=== PATIENT | female | born 1965 | race Caucasian/White ===

== ENCOUNTER 2018-06-06 16:19 | Inpatient (IN) ==
--- NOTE | 2018-06-06 16:30 | PROVIDER DOCUMENTATION ---
HPI-Neurological Disorder - General Chief Complaint: Seizure Stated Complaint: seizure Time Seen by Provider: 06/06/18 16:19 Allergies/Adverse Reactions: Patient Allergies Allergy/AdvReac Type Severity Reaction Status Date / Time No Known Allergies Allergy Verified 06/06/18 17:02 Home Medications: Home Medication List Medication Instructions Recorded Confirmed Last Taken Type Amlodipine Besylate [Norvasc] 10 mg PO DAILY 06/22/17 06/06/18 06/21/17 21:00 History Atorvastatin Calcium 80 mg PO QHS 06/22/17 06/06/18 06/21/17 21:00 History Cyclobenzaprine [Flexeril] 10 mg PO BID PRN 06/22/17 06/06/18 Unknown History Gabapentin 300 mg PO BID 06/22/17 06/06/18 06/22/17 08:00 History Lisinopril 20 mg PO QAM 06/22/17 06/06/18 06/21/17 09:00 History Metformin [Glucophage] 500 mg PO QHS 06/22/17 06/06/18 06/21/17 22:00 History Metoprolol Tartrate 50 mg PO DAILY 06/22/17 06/06/18 06/22/17 08:00 History Clopidogrel [Plavix] 1 tab PO DAILY 06/06/18 06/06/18 Unknown History Escitalopram [Lexapro] 20 mg PO DAILY 06/06/18 06/06/18 Unknown History Topiramate 1 tab PO QHS 06/06/18 06/06/18 Unknown History Trazodone [Desyrel] 1 tab PO QHS 06/06/18 06/06/18 Unknown History - History of Present Illness-Neuro Nature of Presenting Problem: ems reports that pt reporting that pt had intermittent seizure. while ems got there pt was alert speaking while having upper extremities shaking. pt has history of seizure on topirmate and also on other antipsychotic medicine. while at bedside pt werent able to give history and incoherent. able to state names and undertanding but kept repeating words. she says that she was putting her glass on and while standing up, she felt dizzy, weak and numbness on the arms and legs, and held on her to stand and ambulate. while in the room pt having her lower extrremities moving. she is crying and stating things are not consistent. Review of Systems - Adult - REVIEW OF SYSTEMS - ADULT Constitutional: reports: no symptoms reported Eyes: reports: no symptoms reported Ears, Nose, Mouth & Throat: reports: no symptoms reported Cardiovascular: reports: no symptoms reported Respiratory: reports: no symptoms reported Gastrointestinal: reports: no symptoms reported Genitourinary: reports: no symptoms reported Musculoskeletal: reports: no symptoms reported Integumentary: reports: no symptoms reported Neurological: reports: no symptoms reported Psychiatric: reports: no symptoms reported Endocrine: reports: no symptoms reported Hematologic/Lymphatic: reports: no symptoms reported Allergic/Immunologic: reports: no symptoms reported All Other Systems: Reviewed and Negative Past History - Adult - PAST MEDICAL HISTORY-ADULT Review of Records: reports: Old Records Reviewed, Nursing Assessment Review, Medications Reviewed, Social history reviewed & non-contributory. Major Childhood Illnesses: reports: denies history Cardiovascular: reports: CAD (with stent in place), HTN, [place] (no prior record) Respiratory: reports: COPD Gastrointestinal: reports: denies history Obstetrical/Gynecological: reports: denies history Genitourinary: reports: denies history Musculoskeletal: reports: denies history Neurological: reports: denies history Endocrine/Immune: reports: denies history Other Conditions: reports: denies history - PRIOR SURGERIES/PROCEDURES Surgical/Procedure History: reports: cardiac stent (05/23/17) - IMMUNIZATION STATUS Childhood Immunizations: See Nurse Assessment Flu Vaccine: See Nurse Assessment - FAMILY HISTORY Family History: reviewed, not pertinent - SOCIAL HISTORY Smoking: denies Substance Use: none/never Living Situation: family Physical Exam- Neurological - Physical Exam-Neuro Initial Vital Signs Reviewed: Yes (tachycardic) General Appearance: alert (but incoherent. 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, other (no facial droop) Integumentary: normal color, normal turgor Psych/Mental Status: anxious, tearful, other (know) Progress - PLAN OF CARE/RESULTS Progress/Plan/Lab Results: Vital Signs - 8 hr 06/06/18 16:19 06/06/18 17:14 06/06/18 17:20 Temperature 98.2 F Pulse Rate 114 H 115 H 106 H Respiratory Rate 18 15 22 Blood Pressure 185/85 146/98 O2 Sat by Pulse Oximetry 99 97 99 06/06/18 17:30 06/06/18 17:40 06/06/18 17:50 Temperature Pulse Rate 93 H 89 84 Respiratory Rate 15 13 11 L Blood Pressure O2 Sat by Pulse Oximetry 97 97 97 06/06/18 18:00 Temperature Pulse Rate 79 Respiratory Rate 19 Blood Pressure O2 Sat by Pulse Oximetry 97 Laboratory Results - last 24 hr 06/06/18 06/06/18 06/06/18 16:27 16:27 16:27 WBC 9.96 RBC 4.18 L Hgb 12.2 Hct 36.6 L MCV 87.6 MCH 29.2 MCHC 33.3 RDW Std Deviation 15.4 H Plt Count 423 H MPV 10.1 Immature Gran % (Auto) 0.2 Neut % (Auto) 65.3 Lymph % (Auto) 25.7 [place] % (Auto) 7.7 Eos % (Auto) 0.6 Baso % (Auto) 0.5 Immature Gran # (Auto) 0.02 Neut # (Auto) 6.50 Lymph # (Auto) 2.56 [place] # (Auto) 0.77 H Eos # (Auto) 0.06 Baso # (Auto) 0.05 Sodium 139 Potassium 3.8 Chloride 106 Carbon Dioxide 19 L Anion Gap 14 BUN 14 Creatinine 1.1 H Estimated GFR/1.73 m2 52 BUN/Creatinine Ratio 13 Glucose 159 H POC Glucose Calculated Osmolality 281 Calcium 9.5 Magnesium 1.9 Total Bilirubin 0.30 AST 20 ALT 19 Alkaline Phosphatase 95 Total Protein 8.4 H Albumin 4.4 Globulin 4.0 Albumin/Globulin Ratio 1.1 TSH Plasma/Serum Ethyl Alc 06/06/18 06/06/18 16:27 17:58 WBC RBC Hgb Hct MCV MCH MCHC RDW Std Deviation Plt Count MPV Immature Gran % (Auto) Neut % (Auto) Lymph % (Auto) [place] % (Auto) Eos % (Auto) Baso % (Auto) Immature Gran # (Auto) Neut # (Auto) Lymph # (Auto) [place] # (Auto) Eos # (Auto) Baso # (Auto) Sodium Potassium Chloride Carbon Dioxide Anion Gap BUN Creatinine Estimated GFR/1.73 m2 BUN/Creatinine Ratio Glucose POC Glucose 127 H Calculated Osmolality Calcium Magnesium Total Bilirubin AST ALT Alkaline Phosphatase Total Protein Albumin Globulin Albumin/Globulin Ratio TSH 0.63 Plasma/Serum Ethyl Alc Orders Category Date Time Status Finger Stick Blood Sugar (ED) DIRECTED Care 06/06/18 16:26 Active Notify MD if DIRECTED Care 06/06/18 16:26 Active Saline Loc NOW Care 06/06/18 16:26 Active CHEST-PORTABLE [RAD] Stat Exams 06/06/18 18:[address] HEAD W/O CONTRAST [CT] Stat Exams 06/06/18 16:43 Completed ABG [RESP] Routine Lab 06/06/18 18:40 Ordered ALCOHOL BLOOD Stat Lab 06/06/18 16:27 Completed CBC WITH ELECTRONIC DIFF [HEME] Stat Lab 06/06/18 16:27 Completed COMPREHENSIVE METABOLIC PANEL [CHEM] Stat Lab 06/06/18 16:27 Completed MAGNESIUM [CHEM] Stat Lab 06/06/18 16:27 Completed TSH Stat Lab 06/06/18 16:27 Completed URINE DRUG SCREEN Stat Lab 06/06/18 17:26 Uncollected 0.9% Sodium Chloride Inj [Ns] 1,000 ml Med 06/06/18 17:06 Discontinued IV 999 mls/hr Lorazepam [Ativan] Med 06/06/18 17:05 Active 2 mg IV PRN PRN Seizure, New Onset Stat Oth 06/06/18 16:26 Ordered EKG [EKG] Stat Ther 06/06/18 16:27 Ordered [facility] [address] [facility] [address], [place] [address] Department of Imaging Patient: ANA FREEMAN ADM Date: 06/06/18 MR#: [id number] : 1965 ADM Status: PRE ER Age/Sex: 53/F Room/Bed: Loc: ED Ordering Physician: Cata Solis MD Family Physician: Reason for Procedure: seizure ___ Signed CT HEAD W/O CONTRAST - 06/06/2018 INDICATION: seizure COMPARISON: 08/12/2011 FINDINGS: There is some minimal periventricular white matter chronic microvascular disease stable from prior. The ventricles and sulci are normal in size and contour. No intracranial mass or hemorrhage. The skull is intact. The sinuses mastoids and middle ears are clear. IMPRESSION: No acute process. This exam was performed using automated exposure control, adjustment of mA or kV according to patient size, and/or use of iterative reconstruction technique Electronically signed by Zhen Ott 06/06/2018 5:21 PM 06/06/18 1721 Interpreting Physician: Zhen Ott MD Dictated Date/Time: 06/06/18 1719 cc: Cata Solis MD; Result Diagrams: 06/06/18 16:27 06/06/18 16:27 - REASSESSMENT Reassessment #1 Time Reassessed: 17:19 (calm while she was with family. ) - EKG 1 Time of EKG reading by physician:: 17:19 EKG Read and Signed by:: Cata Solis EKG Interpretation (*Must complete 3 of following elements*): Normal Rate: 99 Rhythm: nsr [place]: normal QRS: normal [place] Interval: normal ST Wave: normal - CONSULTS/PCP/HOSPITALIST Notification #1 *Consult/PCP/Hospitalist*: Dr. Moore Time Discussed: 18:43 (seizure/cva/medication induced r/o) Consult Disposition: Admit Departure - Departure Date of Disposition Decision: 06/06/18 Time of Disposition Decision: 18:44 DIAGNOSIS: Seizure disorder Disposition: ADMITTED INPATIENT 09 Certified Medical Emergency: Emergent Condition: Stable - Critical Care Note This patient required my direct & personal management of CC.: No Attestation - Physician/ JIMBO Attestation The physician spent face to face time with patient:: Yes Advanced Practice Provider documentation review:: Supervising physician onsite and consulted in the evaluation and care of this patient. The physician did have a face to face encounter with the patient. - NIH Stroke Scale NIH Type: Initial Evaluation Level of Consciousness: 0-Alert LOC Questions (ask month and age): 1-Answers One Correctly LOC Commands (ask to open & close eyes;make a fist, let go): 1-Obeys One Correctly Best Gaze (horizontal eye movement): 0-Normal Visual (use finger movement, counting or visual threat): 0-No Visual Loss (cant assess.) Motor Function-left arm: 2-Some Effort Against [place] (with mild drift) Motor Function-left le-Normal Motor Function-right le-Normal Limb Ataxia(oidznf-tugz-cebfel, or heel to parnell): 0-Untestable (not follow with direction) Sensory(pin prick to face,arms,trunk,legs-compare side/side): 0-No Ataxia Best Language(name item/read sentence.Ex-Down to Earth): 1-Mild to Moderate Aphasia (per) Dysarthria(Pt read words or say words Ex.Mama,Tip-Top,Thanks: 1-Mild-Mod S lurring Words (gisele with perseveration) Modified Sully Score Criteria: 2-slight disability
[2018-06-06] MEDS ORDERED: ATIVAN IV PRN ×2 (17:05→23:22)
[2018-06-06] MEDS ORDERED: NS 1,000 ML IV ONE (17:06)
[2018-06-06 17:16] LABS: BASO# 0.05 X1000 (0.0-0.2); BASO% 0.5 % (0.0-0.8); EOS# 0.06 X1000 (0.0-0.7); EOS% 0.6 % (0.0-10.0); HEMATOCRIT 36.6 % (37.0-47.0); HEMOGLOBIN 12.2 g/dL (12.0-16.0); IMM GRAN# 0.02 X1000 (0.0-0.04); IMM GRAN% 0.2 % (0.0-0.5); LYMPH# 2.56 X1000 (1.2-3.4); LYMPH% 25.7 % (20.5-51.1); MCH 29.2 PG (27-31); MCHC 33.3 g/dL (33-37); MCV 87.6 FL (81-99); MONO# 0.77 X1000 (0.11-0.59); MONO% 7.7 % (1.7-9.3); MPV 10.1 FL (7.4-10.4); NEUT% 65.3 % (42.2-75.2); PLT 423 X1000 (130-400); RBC 4.18 XMIL (4.2-5.4); RDW 15.4 % (11.5-14.5); WBC 9.96 X1000 (4.8-10.8)
[2018-06-06 17:23] LABS: ALB/GLOB RATIO 1.1; ALBUMIN 4.4 g/dL (3.5-5.0); CALCIUM 9.5 mg/dL (8.8-10.2); CREATININE 1.1 mg/dL (0.5-0.9); MAGNESIUM 1.9 mg/dL (1.5-2.7); POTASSIUM 3.8 mmol/L (3.5-5.1); TOTAL BILIRUBIN 0.3 mg/dL (0.20-1.00); TOTAL PROTEIN 8.4 g/dL (6.3-8.3)
--- NOTE | 2018-06-06 17:24 | Diag Imaging Result Doc PS360 ---
CT HEAD W/O CONTRAST - 06/06/2018 INDICATION: seizure COMPARISON: 08/12/2011 FINDINGS: There is some minimal periventricular white matter chronic microvascular disease stable from prior. The ventricles and sulci are normal in size and contour. No intracranial mass or hemorrhage. The skull is intact. The sinuses mastoids and middle ears are clear. IMPRESSION: No acute process. This exam was performed using automated exposure control, adjustment of mA or kV according to patient size, and/or use of iterative reconstruction technique Electronically signed by Zhen Ott 06/06/2018 5:21 PM
[2018-06-06 18:59] LABS: ALLEN TEST YES; BE -2.3 mmoll (-3.0-3.0); BLOOD TYPE ARTERIAL; O2(CT) 14.5 mL/dL (15.0-23.0); O2HB 92.8 % (95.0-99.0); PCO2(98.6) 42 mmHg (35-45); PO2(98.6) 62 mmHg (60-100); SAMPLE BLOOD; SAO2 95.9 % (95.0-100.0); THB 11.1 g/dL (11.5-17.4); pH(98.6) 7.35 (7.35-7.45)
[2018-06-06 19:00] LABS: MODALITY ROOM AIR
--- NOTE | 2018-06-06 19:33 | Diag Imaging Result Doc PS360 ---
CHEST-PORTABLE - 06/06/2018 INDICATION: seizure COMPARISON: 06/22/2017 FINDINGS: Lung volumes are severely low. There are patchy central infiltrates bilaterally. Heart size are means top normal. No pneumothorax or pleural effusion. IMPRESSION: Low lung volumes. Central infiltrates concerning for pneumonia or aspiration. Electronically signed by Zhen Ott 06/06/2018 7:31 PM
[2018-06-06 20:56] LABS: INR 0.97; PROTIME 13.6 Seconds (11.0-16.0); PTT 28.5 Seconds (22.3-41.8)
[2018-06-06] MEDS: ZOSYN 3.375 GM in NS 50 ML IV SCH (22:17)
[2018-06-06 22:26] LABS: URINE SOURCE CATH
[2018-06-06 22:36] LABS: BILIRUBIN URINE NEGATIVE (NEGATIVE); BLOOD URINE NEGATIVE (NEGATIVE); COLOR YELLOW; GLUCOSE URINE NEGATIVE (NEGATIVE); KETONE URINE NEGATIVE (NEGATIVE); LEUKOCYTES URINE NEGATIVE (NEGATIVE); NITRITE URINE NEGATIVE (NEGATIVE); PROTEIN URINE TRACE mg/dL (NEGATIVE); SP GRAVITY URINE 1.009; TURBIDITY URINE CLEAR (CLEAR); UROBILINOGEN URINE NORMAL (NORMAL)
[2018-06-06 22:37] LABS: UR EPITHELIAL CELLS <10 /HPF (<10); URINE BACTERIA NEGATIVE /HPF; URINE RBC <10 /HPF (<10); URINE WBC <10 /HPF (<10)
[2018-06-06 22:49] LABS: UR AMPHETAMINES QUAL NONE DETECTED (NONE DETECT); UR BARBITUATES QUAL NONE DETECTED (NONE DETECT); UR BENZODIAZEPIN QUAL NONE DETECTED (NONE DETECT); UR CANNABINOIDS QUAL NONE DETECTED (NONE DETECT); UR COCAINE QUAL NONE DETECTED (NONE DETECT); UR METHADONE QUAL NONE DETECTED (NONE DETECT); UR OPIATES QUAL NONE DETECTED (NONE DETECT); UR OXYCODONE QUAL NONE DETECTED (NONE DETECT); UR PCP QUAL NONE DETECTED (NONE DETECT)
[2018-06-06] MEDS ORDERED: TYLENOL PR PRN (23:22)
[2018-06-06] MEDS ORDERED: DUONEB (A & A) INH PRN (23:22)
[2018-06-06] MEDS ORDERED: ZOFRAN IV PRN (23:22)
[2018-06-06] MEDS ORDERED: SODIUM CHLORIDE 0.9% INJ SCH (23:22)
[2018-06-07] MEDS: NS 1,000 ML IV SCH ×3 (00:43→18:07)
[2018-06-07] MEDS: PROTONIX IV SCH ×2 (00:44→22:52)
[2018-06-07 01:20] LABS: UR AMPHETAMINES QUAL NONE DETECTED (NONE DETECT); UR BARBITUATES QUAL NONE DETECTED (NONE DETECT); UR BENZODIAZEPIN QUAL NONE DETECTED (NONE DETECT); UR CANNABINOIDS QUAL NONE DETECTED (NONE DETECT); UR COCAINE QUAL NONE DETECTED (NONE DETECT); UR METHADONE QUAL NONE DETECTED (NONE DETECT); UR OPIATES QUAL NONE DETECTED (NONE DETECT); UR OXYCODONE QUAL NONE DETECTED (NONE DETECT); UR PCP QUAL NONE DETECTED (NONE DETECT)
[2018-06-07] MEDS: ZOSYN 3.375 GM in NS 50 ML IV SCH ×2 (02:45→08:03)
[2018-06-07 04:30] LABS: ACETAMINOPHEN < 1.2 ug/mL (10-30); SALICYLATES < 3.00 mg/dL (3-10)
--- NOTE | 2018-06-07 06:05 | HISTORY AND PHYSICAL ---
PRIMARY CARE PROVIDER: [facility] here in [place]. HISTORY OF PRESENT ILLNESS: Ms Christopher is a 53-year-old female with a past medical history most notable for seizures, migraines, hypertension, hyperlipidemia, diabetes mellitus, and a history of coronary artery disease cardiac stent placement x1 in May 2017. According to the ER notes from the nurse and the physician, the patient's called EMS due to he thought that the patient may have been having intermittent seizures. ER note reports that when EMS arrived, the patient was alert and speaking, while having upper extremity shaking. Their notes report that EMS stated the patient remained alert the entire time and did not have symptoms of postictal-type phase, though she was having extremity shaking. ER notes report that upon the patient's arrival to our facility, that the patient was able to state her name, though she was repeating words and, at times, was incoherent. They reported that she stated she felt dizzy, weak, and did have some numbness in arms and legs. They reported that she was having lower extremity shaking. They did administer 2 mg of Ativan IV in the ER at 1724 hours and did give a 1 L normal saline bolus. The patient's states that last night, on June 05, that the patient was fine, she had not reported any complaints. They did eat dinner and the patient went to bed, though he states around 2 or 3 a.m., he did try to get her up and he was unable to arouse her. He states that she did continue to sleep and later on in the morning he was able to get her up, that she ambulated to the bathroom and when she came back out she was having uncontrollable shaking of her arms and legs, and was awake and able to speak, though she was confused and saying things that did not make since. He reported that the shaking in her arms and leg was continuous, it was not intermittent. He denies her having any recent changes to any of her medications or any new medicines prescribed, though he did state that she had informed him that she was out of some of her medicines, but we do not know which ones. He does report that she has a history of seizures, though denies her having any known history of strokes. He denies her having any recent complaints or reported symptoms or not feeling well. He reported that she did have the flu a couple weeks ago, though since that time her symptoms have resolved and the patient was feeling better. He denied her having any known fever, body aches, chills or cough. The patient does have a history of depression, though according to her and family member by the name of either Rhea or Toma, that I spoke to on the phone, deny her having any previous history of self-harm or suicide attempts in the past. The states that he thinks that she does take pain medication, though he is not sure. He denied her having any previous history of accidentally taking too much of her medication or intentionally taking too much of her medication. Upon my evaluation in the ER, the patient is very lethargic. She is only arousable to a sternal rub with just a slight facial grimace. She does have a corneal reflex intact. Pupils are 3 mm bilaterally, they are slightly sluggish. Lung sounds were difficult to auscultate due to the patient is snoring and this did contribute to difficulty when auscultating, though bowel sounds were present and were hypoactive. She did not have any facial grimacing, guarding, or localization of pain upon palpation of her abdomen. She does not have any swelling noted to extremities. I did perform a CT of the head, which did not show any acute intracranial abnormalities. She does not have any leukocytosis. Arterial blood gases were within normal limits, pH, CO2, pO2 all are within normal limits. Her chemistries are pretty unremarkable, except she did have a slightly elevated creatinine of 1.1 and a GFR of 52. Serum glucose was 159, with a repeat fingerstick at 127. CK and troponin were negative. EKG showed normal sinus rhythm at a rate of 99 with a QTc of 433 msec. Her urine drug screen was negative. Serum alcohol is 0. Her chest x-ray performed did show low lung volumes and central infiltrates concerning for pneumonia and/or aspiration. Given that the patient has reported to be lethargic for a period of time since yesterday morning with confusion, aspiration could be a possibility. The patient's denies her having any known nausea or vomiting. Blood cultures have been obtained as well as sputum culture has been ordered. We will place her on antibiotic coverage with Zosyn. She will be placed in ICU for close monitoring. REVIEW OF SYSTEMS: Unfortunately a review of system is unable to be performed with the patient at this time, due to her current condition and mentation. Though, please see above HPI for reported symptoms related to her HPI by her . PAST MEDICAL HISTORY: 1. Coronary artery disease, status post cardiac stent placement in April/May 2017. 2. Hypertension. 3. Hyperlipidemia. 4. Diabetes mellitus. 5. History of seizures. 6. Neuropathy. 7. Migraines. 8. Depression. PAST SURGICAL HISTORY: 1. Tubal ligation. 2. Parathyroid removal. 3. Low back surgery for what sounds to be degenerative disk disease. 4. Cardiac stent placement in 2018. SOCIAL HISTORY: The patient is a current every day smoker, she smokes 1 pack per day. The patient's denies her having any known history of alcohol abuse or illicit drug use. FAMILY HISTORY: Positive for heart disease. ALLERGIES: Patient has no known allergies. HOME MEDICATIONS: 1. Norvasc 10 mg p.o. daily. 2. Atorvastatin 80 mg p.o. at bedtime. 3. Plavix 75 mg p.o. daily. 4. Flexeril 10 mg p.o. b.i.d. p.r.n. 5. Lexapro 20 p.o. daily. 6. Gabapentin 300 mg p.o. b.i.d. 7. Lisinopril 10 mg q.a.m. 8. Metformin 500 mg p.o. at bedtime. 9. Metoprolol 50 mg p.o. daily. 10. Topamax 10 mg. at bedtime. 11. Trazodone 50 mg p.o. at bedtime. DIAGNOSTIC DATA: Laboratory results: White blood cell count is 9960, hemoglobin 12.2, hematocrit 36.6, platelet count is 423,00. PT 13.6, INR 0.97, PTT is 28.5. Sodium 139, potassium 3.8, chloride 106, serum bicarb 19, BUN 14, creatinine 1.1. GFR 52, glucose 159, calcium 9.5, magnesium 1.9. Liver function tests within normal limits. CK 134, troponin less than 0.01. Plasma lactate 1.5. TSH 0.63. Serum alcohol zero. Arterial blood gas was obtained on room air with a pH 7.35, pCO2 of 42, pO2 of 62, HCO3 is 23, the base excess of -2.3, and O2 saturation is 95.9%. Urinalysis is only positive for trace protein, is otherwise negative, did not show any signs of infection. Her urine drug screen was negative. EKG showed normal sinus rhythm at a rate of 99, with a QTc of 433 msec. Imaging: Chest x-ray did show low lung volumes and central infiltrates concerning for pneumonia or aspiration, this is per Radiology. CT scan of the head without contrast showed no acute process. There was some minimal periventricular white matter, chronic microvascular disease stable from prior. PHYSICAL EXAMINATION: VITAL SIGNS: Temperature 98.2, heart rate 75, respirations 13, blood pressure 134/81, oxygen saturation 100% on room air. GENERAL: Mrs Christopher is a 53-year-old female, she was resting on the ER stretcher. She was in no acute distress. The patient is lethargic, she only had response of a facial grimace to a sternal rub. HEENT: Head is atraumatic, normocephalic. Pupils are equal, round, reactive to light, were 3 mm bilaterally. There were slightly sluggish. Oral mucosa is slightly dry. Oropharynx is clear. NECK: Supple. Trachea midline. No carotid bruits noted upon auscultation. CARDIOVASCULAR: The patient has S1, S2 present. No murmurs, gallops, rubs appreciated with a regular rate and rhythm. PULMONARY: The patient has symmetrical chest expansion bilaterally. The lung sounds were difficult to auscultate due to the patient was, unfortunately, snoring and this made lung sounds difficult to auscultate, though lung sounds were present bilaterally. ABDOMEN: Soft. Does not appear to be distended. The patient does have a protuberant abdomen noted. Upon palpation, there was no facial grimacing, guarding, or localization to pain. Bowel sounds were present, though were hypoactive. EXTREMITIES: No cyanosis or edema noted. Radial pulses and pedal pulses are 2+ bilaterally. INTEGUMENTARY: The patient's skin is pink, warm, and dry. NEUROLOGICAL: The patient is lethargic at this time. She only has a response of a facial grimace to sternal rub. The patient was previously given Ativan prior to my assessment, 2 mg IV. This is likely affecting her neurological exam. Though she is not moving her extremities at this time, the patient was reported to be having shaking of her upper and lower extremities previously. At this time, the patient's neurological exam is limited. ASSESSMENT AND PLAN: 1. Encephalopathy. This could be multifactorial. This could be related to possible seizures. Though they did report that she had shaking of hands and feet, they reported that the patient was alert throughout these shaking episodes and that she did not appear to be postictal. This also could be medication related. The patient does take approximately 5 medications that could affect her neurological status. Her also reports that she had been out of some of these medications, this could be related some type of withdrawal as well. Urine drug screen was negative, serum alcohol was zero. The patient's reported that he thought she took pain medication, though her urine drug screen is negative at this time. We are also ruling out possible cerebrovascular accident as well. The patient's CT of the head without contrast was negative, though we will continue with carotid ultrasound, echocardiogram, as well as MRI brain with and without contrast. We will place this patient in ICU for close monitoring. She will have frequent vital signs and neuro checks. She will be on continuous cardiac telemetry and pulse oximetry. We will continue to follow closely. 2. History of seizures. As mentioned above, the patient [*]takes Topamax for seizures, though her reported that she may have been out of some of her medications. We have placed p.r.n. Ativan and she will be placed on seizure and aspiration precautions and continue to monitor closely. 3. History of coronary artery disease status post cardiac stent placement. 4. Hypertension. The patient's blood pressure is within normal limits at this time. She is NPO and is not alert enough to swallow medications. We will closely monitor her blood pressure and implement antihypertensive if necessary. 5. Diabetes mellitus. The patient's blood sugar have not been elevated, the last one was 127 per fingerstick blood sugar. The patient is NPO at this time and is lethargic. Given this, we will hold off on giving any insulin at this time. We will do q.4 hour fingerstick blood sugars and only implement sliding scale insulin if necessary. 6. Venous thromboembolism prophylaxis. Will be provided with sequential compression devises. Gastrointestinal prophylaxis. Will be provided with Protonix 40 mg IV q.24 hours. 7. Possible aspiration pneumonia. The patient's chest x-ray did note that she had low lung volumes with central infiltrates concerning for pneumonia and/or aspiration. Given that the patient has had periods of lethargy, aspiration pneumonia is possible. We have obtained blood cultures. We ordered a sputum culture and placed the patient with antibiotic coverage with IV Zosyn. We will continue to follow. She has been placed in ICU for close monitoring. We will repeat a CBC, BMP, and lipid profile in the morning. Acetaminophen and salicylate levels are pending at this time. We have placed her with some gentle IV hydration with normal saline at 100 mL/h. Further orders and recommendations pending hospital course, diagnostic data, and physician evaluation. Dictated by BRIAN Zimmer for Brian Dao MD cc: Brian Dao MD
[2018-06-07 06:13] LABS: BASO# 0.04 X1000 (0.0-0.2); BASO% 0.6 % (0.0-0.8); EOS# 0.11 X1000 (0.0-0.7); EOS% 1.7 % (0.0-10.0); HEMATOCRIT 33.4 % (37.0-47.0); HEMOGLOBIN 10.9 g/dL (12.0-16.0); LYMPH# 2.27 X1000 (1.2-3.4); LYMPH% 34.6 % (20.5-51.1); MCH 29.1 PG (27-31); MCHC 32.6 g/dL (33-37); MCV 89.3 FL (81-99); MONO# 0.52 X1000 (0.11-0.59); MONO% 7.9 % (1.7-9.3); MPV 9.8 FL (7.4-10.4); NEUT# 3.62 X1000 (1.4-6.5); NEUT% 55.2 % (42.2-75.2); PLT 324 X1000 (130-400); RBC 3.74 XMIL (4.2-5.4); RDW 15.7 % (11.5-14.5); WBC 6.56 X1000 (4.8-10.8)
[2018-06-07] MEDS ORDERED: ASPIRIN PO ONE (06:30)
[2018-06-07 06:40] LABS: AGAP 11; BUN 12 mg/dL (8-22); CALCIUM 8.7 mg/dL (8.8-10.2); CHLORIDE 109 mmol/L (98-107); COSMO 284; CREATININE 0.9 mg/dL (0.5-0.9); ESTIMATED GFR > 60; GLUCOSE 119 mg/dL (70-104); POTASSIUM 3.7 mmol/L (3.5-5.1); SODIUM 142 mmol/L (136-145); TCO2 22 mmol/L (25-35)
[2018-06-07] MEDS: PLAVIX PO SCH (08:03)
--- NOTE | 2018-06-07 14:06 | ECHO REPORT ---
ORDER DATE: 06/07/2018 INDICATION: Coronary artery disease, hypertension, tobacco abuse, obesity. FINDINGS: 1. The right atrium appears mildly enlarged at 4.1 cm. 2. Mild tricuspid regurgitation. RV systolic pressure of 42. 3. Right ventricle appears to be normal in size with normal RV systolic function. There appears to be a prominent moderator band visualized in the right ventricle. This is a normal structure. 4. Mild pulmonic insufficiency. 5. Mild left atrial enlargement with a volume index of 29. 6. No mitral valve prolapse. Mild mitral regurgitation. 7. Normal LV size. The end-diastolic dimension is 4.8. Normal wall thicknesses with a posterior and interventricular septal wall thickness of 0.9 and 1.0 cm respectively. Normal LV systolic function. Calculated EF of 68%. 8. No mitral valve prolapse. Mild mitral regurgitation. No mitral stenosis. 9. Aortic valve opens well. It is trileaflet. No evidence of stenosis or insufficiency. 10. Aorta appears normal in visualized segments. 11. There is an anterior echo-free space which, on many views, appears more consistent with pericardial fat. If there is any pericardial effusion present, it is extremely small and does not appear to be clinically significant. cc: Mikey Sweeney MD
--- NOTE | 2018-06-07 14:58 | PROGRESS NOTE ---
DATE: 06/07/2018 SUBJECTIVE: This morning, Ms. Christopher refers to be feeling a lot better. Denies any more of the shaking spells, and she seems to be more awake, alert, and conversational. OBJECTIVE: Vital Signs: Blood pressure is 150/92, pulse of 80, respirations are 16, temperature is 98.5. General Examination: Ms. Christopher is a 53-year-old, female. She is in bed, in no distress. HEENT: Mucosa is pink and moist. Anicteric. Acyanotic. Neck: Supple. Chest: Clear to auscultation. No crepitations. No rhonchi. Cardiovascular: Regular rate and rhythm. No murmurs, no rubs, no gallops. GI: Abdomen is soft and distended but nontender. Bowel sounds present. Extremities: No pedal edema. Distal pulses present. LOG YARD MANAGER: The patient is awake, alert, oriented, very conversational, and very cooperative. Laboratory Data: WBC is 6.56, hemoglobin is 10.9, platelet count of 324,000. Chemistry is also reviewed. Sodium is 142, potassium is 3.7, chloride is 109, bicarb is 22, creatinine is down to 0.9. Total cholesterol is 254 with HDL which is 44, is low. So far, urine toxicology is negative. ASSESSMENT AND PLAN: 1. Episode of shaking (tremors) associated with altered mental status. Unsure if this was a true seizure or it was withdrawal from medications. The patient is currently under seizure precautions in the intensive care unit. We are going to monitor her neurological status. I have restarted some of her home medications, and we are pending an MRI, an EEG, and neurology consult tomorrow. 2. History of seizure disorder. Patient is on Topamax. 3. History of migraines. 4. History of coronary artery disease, status post stents. The patient is on aspirin and statin medication. 5. Hypertension. We will continue with current medications. 6. Diabetes mellitus. 7. Questionable aspiration pneumonia. However, the patient is saturating well. No fever and white cell count is fine so I would discontinue the antibiotics for now. cc: Poncho Moore MD
[2018-06-07] MEDS ORDERED: TYLENOL PO PRN (15:36)
[2018-06-07] MEDS: NORVASC PO SCH (15:42)
[2018-06-07] MEDS ORDERED: TOPAMAX PO ONE (17:49)
[2018-06-07] MEDS ORDERED: NICODERM PATCH TD SCH (20:45)
[2018-06-07] MEDS: NEURONTIN PO SCH (20:49)
[2018-06-07] MEDS ORDERED: DESYREL PO SCH (21:00)
[2018-06-07] MEDS ORDERED: TOPAMAX PO SCH (21:00)
[2018-06-07] MEDS ORDERED: LIPITOR PO SCH (21:00)
[2018-06-07] MEDS ORDERED: LOPRESSOR PO SCH (21:00)
[2018-06-08] MEDS: NS 1,000 ML IV SCH (06:22)
[2018-06-08 06:43] LABS: ALB/GLOB RATIO 1.1; ALBUMIN 4.4 g/dL (3.5-5.0); CALCIUM 9.4 mg/dL (8.8-10.2); MAGNESIUM 2.1 mg/dL (1.5-2.7); PHOSPHORUS 2.9 mg/dL (2.7-4.5); POTASSIUM 3.6 mmol/L (3.5-5.1); TOTAL BILIRUBIN 0.46 mg/dL (0.20-1.00); TOTAL PROTEIN 8.3 g/dL (6.3-8.3)
--- NOTE | 2018-06-08 07:35 | EKG Report ---
Test Performed on : 06/07/2018 06:10:41 AM Test Reason : CP Blood Pressure : / mmHG Vent. Rate : 082 BPM Atrial Rate : 082 BPM P-R Int : 154 ms QRS Dur : 070 ms QT Int : 400 ms P-R-T Axes : 047 -02 014 degrees QTc Int : 467 ms Normal sinus rhythm. Cannot rule out Anterior infarct , age undetermined Abnormal ECG When compared with ECG of 06-JUN-2018 17:03, (Unconfirmed) Nonspecific T wave abnormality now evident in Inferior leads Nonspecific T wave abnormality, worse in Anterolateral leads Confirmed by Zaira VALENZUELA, Dominguez ([id number]) on 06/08/2018 8:59:37 AM
--- NOTE | 2018-06-08 08:14 | EKG Report ---
Test Performed on : 06/06/2018 5:03:30 PM Test Reason : CP Blood Pressure : / mmHG Vent. Rate : 099 BPM Atrial Rate : 099 BPM P-R Int : 142 ms QRS Dur : 074 ms QT Int : 338 ms P-R-T Axes : 032 021 048 degrees QTc Int : 433 ms Normal sinus rhythm. Nonspecific ST abnormality Abnormal ECG When compared with ECG of 23-JUN-2017 04:27, Vent. rate has increased BY 45 BPM Nonspecific T wave abnormality no longer evident in Inferior leads Unconfirmed Result
[2018-06-08 08:27] VITALS: BP 175/113
[2018-06-08] MEDS ORDERED: PRINIVIL PO SCH (09:00)
[2018-06-08] MEDS: PLAVIX PO SCH (09:04)
[2018-06-08] MEDS: NEURONTIN PO SCH (09:04)
[2018-06-08] MEDS: NORVASC PO SCH (09:05)
[2018-06-08] MEDS ORDERED: HYGROTON PO SCH (09:30)
--- NOTE | 2018-06-08 09:33 | PROGRESS NOTE ---
DATE: 06/08/2018 SUBJECTIVE: This morning, Ms. Christopher refers to be doing fairly okay. According to her, she keeps hearing some voices that she cannot put names to. Occasionally, the voices will tell her to do things but then tell her to hurt herself. She also says she is getting concerned because of these voices. OBJECTIVE: Current Vital Signs: Blood pressure is 173/113, pulse is 85, respiration are 19, temperature is 97.5 degrees. General Examination: Ms. Christopher is a 53-year-old, female. She is in bed, no distress. HEENT: Mucosa is pink and moist. Anicteric. Acyanotic. Neck: Supple. Chest: Good air entry bilaterally. No crepitations. No rhonchi. Cardiovascular: Regular rate and rhythm. No murmurs, no rubs, no gallops. GI: Abdomen is soft. It is nontender. Bowel sounds present. Extremities: No pedal edema. Distal pulses are present. HEADING SAW OPERATOR: The patient is awake, alert. Follows basic commands. Psychiatric: The patient refers to be having some auditory hallucinations. Laboratory Data: CBC is still pending. Chemistry is reviewed and is completely normal. The patient's TSH is normal. So far, blood cultures have also been 48 hours negative. ASSESSMENT: 1. Episode of shaking (tremors associated with altered mental status). I think this is probably related to psychotropic medications, either withdrawal or abuse. The patient has been fairly stable during the hospital course. She is pending a neurology evaluation because of questionable seizures. MRI and EEG are also pending. 2. History of seizure disorder. Patient had been started on Topamax. No seizures during the hospital course. 3. History of migraines, currently stable. Patient is on Topamax. 4. Hypertension, is uncontrolled. We are going to up-titrate her medications. 5. Diabetes mellitus, controlled. 6. Aspiration pneumonia, improved. The patient is currently not on any antimicrobials. 7. Auditory hallucinations. We are going to consult [facility] to evaluate and see if the patient will need any inpatient psychiatric management. 8. History of depression. Unsure if the patient does have bipolar or a psychotic disorder. She is referring hallucinations and we have not seen any depressive mood. Will be pending the evaluation from [facility] to see what their recommendations will be. PLAN: In general, Ms. Christopher was admitted to the hospital yesterday, mainly because of shaking. There was a question of seizures. However, the description of her shaking does not really fit a seizure episode. She has been observed in the ICU 24 hours. There is no seizure documented so she is pending an MRI and EEG, and neurology evaluation. Once that is done, we will be able to move Ms. Christopher to the medical floor and pending a psychiatric evaluation. Once all that is done, if she does not need any inpatient psychiatric management, we will be able to discharge her and then follow up with mental health at a later date. cc: Poncho Moore MD
--- NOTE | 2018-06-08 16:03 | Diag Imaging Result Doc PS360 ---
EXAM: MRI BRAIN W/WO CONTRAST 06/08/2018 HISTORY: Encephalopathy,R/O Poss. CVA TECHNIQUE: Sagittal T1, axial T1, post gadolinium axial T1 with coronal reformation, axial T2, FLAIR, DWI and coronal gradient echo. COMMENT: There is extensive abnormal T2 weighted signal intensity throughout the white matter of both cerebral hemispheres and to some extent in the partha and lower midbrain. There is no evidence of restricted diffusion. There is no evidence of mass effect or abnormal extra-axial fluid collection or bleed. IMPRESSION: Chronic ischemic microvascular change and/or demyelinating disease. Electronically signed by Marc Mendes 06/08/2018 4:00 PM
--- NOTE | 2018-06-08 18:16 | DISCHARGE SUMMARY ---
ADMISSION DATE: 06/06/2018 DISCHARGE DATE: 06/08/2018 DISPOSITION: The patient actually signed out AMA and left against medical advice. DIAGNOSIS AT THE TIME OF ADMISSION: 1. Encephalopathy. 2. History of seizures. 3. Coronary artery disease. 4. Hypertension. DIAGNOSES AT TIME OF LEAVING AMA: 1. Episode of shaking (tremors associated with altered mental status presumed presumably related to psychotropic medications). 2. History of seizure disorder. 3. History of migraine. 4. Hypertension. 5. Aspiration pneumonitis. 6. History of depression. PRESENTING COMPLAINT: Shaking. HISTORY OF PRESENTING COMPLAINT: Ms. Christopher is a 53-year-old female who is known to have multiple comorbidities including seizures, migraine, depression. She is on multiple psychotropic medications at home, which according to her, she had run out of some. In any case, came into the emergency department because the family found her shaking. They thought there was a concern for seizures. Upon presenting to the emergency department, she was evaluated. Urine drug screen was completely negative. The patient was admitted to the ICU because of concern of seizure disorder. HOSPITAL COURSE: Ms. Christopher was admitted to the ICU under seizure precautions. MRI was ordered as well as an EEG and neurological consult today. Today, she did actually complain of hearing some voices and we had ordered [facility] consult. However, Ms. Christopher had not had anymore seizures or any tremors during the hospital course. Later this afternoon, I was called by the nursing staff that Ms. Christopher just wanted to leave AMA despite the multiple counseling that the nursing staff provided to her. She just chose to leave AMA. cc: Poncho Moore MD
--- NOTE | 2018-06-08 20:51 | Carotid Study ---
DATE: 06/07/2018 PROCEDURE: Bilateral carotid duplex. REQUESTING PHYSICIAN: Dr. Dao. INTERPRETING PHYSICIAN: Dr. Meagan Varma. TECH: HTP. INDICATIONS: Encephalopathy. Rule out CVA. OBSERVED DATA RIGHT LEFT Brachial Blood Pressure Carotid Pulse Bruits: Carotid/Sub DIAGRAM OF ULTRASOUND IMAGING R L RIGHT INT EXT INT EXT LEFT Ramin (cm/s) Ramin (cm/s) Subclavian 116/6 Subclavian 125/17 CCA Proximal 97/22 CCA Proximal 105/23 CCA Distal 83/24 CCA Distal 81/24 Bulb 97/20 Bulb 141/28 ICA Proximal 92/35 ICA Proximal 142/48 ICA Mid 90/39 ICA Mid 139/45 ICA Distal 87/37 ICA Distal 105/42 ECA 94/60 ECA 136/19 Vertebral 42/10 A Vertebral 63/18 A ICA/CCA Ratio 0.94 ICA/CCA Ratio 1.34 % Stenosis 0-39% % Stenosis 40-59% FINDINGS: In the right there are no significant atherosclerotic changes. There are some nodular changes of the right thyroid lobe. In the left there is heterogeneous plaque in the bulb extending to the proximal internal carotid artery that causes elevation of velocities that correlate to 40-50% stenosis. SUMMARY: Moderate atherosclerotic changes noted in the left carotid artery system. Thyroid nodules, recommend correlation with dedicated thyroid imaging. cc: Isreal Varma MD
== END 2018-06-08 10:16 | disposition left against medical advice (07) | DRG 91 ==
LOC: ED 16:19 → EDIPHOLD 20:05 → SUATTDRO 20:05 → ICU 06-07 11:43
PROVIDERS: ATTEND Internal Medicine
CPT/HCPCS: 51702; 70450; 70553; 71010; 71045; 80048; 80053; 80061; 80101; 80196; 80301; 80307; 80320; 80324; 80329; 80345; 80346; 80353; 80358; 80361; 80365; 81001; 82003; 82055; 82550; 82805; 82948; 83605; 83721; 83735; 83992; 84100; 84443; 84484; 85025; 85610; 85730; 87040; 93005; 93306; 93880; 95816; 96361; 96365; 96375; 96376; 99285; A9270; A9579; C9113; G0431; G0434; G0479; G0480; G6038; G6039; G6040; J2060; J2543; J7030; S0164; XXXXX